=== PATIENT | male | born 1960 | race Caucasian/White ===

== ENCOUNTER 2024-12-12 08:26 | Outpatient (REF) | payer BC, SELFPAY ==
--- NOTE | ~2024-12-12 | XR_ITS ---
CLINICAL HISTORY: M25.561 - Pain in right knee Right knee three views Comparison: None provided Findings: No acute fracture or dislocation noted. No significant joint effusion identified. Mild degenerative change with joint space loss. No soft tissue foreign body. Impression: No acute bony abnormality This document has been electronically signed by: Monster Caldwell MD on 12/12/2024 19:20:51
== END 2024-12-12 08:27 | disposition home or self-care (01) ==
LOC: HO.HOSX 08:26
PROVIDERS: Visit Provider Orthopaedic Surgery
DX: M25.561 Pain in right knee (principal); S83.241A Other tear of medial meniscus, current injury, right knee, initial encounter; X50.1XXA Overexertion from prolonged static or awkward postures, initial encounter; Y93.F9 Activity, other caregiving; Y92.9 Unspecified place or not applicable; Y99.9 Unspecified external cause status
CPT/HCPCS: 73562

== ENCOUNTER 2024-12-12 10:57 | Outpatient (AMB) | payer BC, SELFPAY ==
--- NOTE | 2024-12-12 11:01 | MHC.OFFVIS ---
Vital Signs 12/12/24 11:08 Height 5 ft 6 in Weight 175 lb BMI 28.2 Intake Visit Reasons: Right knee pain and giving way Intake Note: Chirag is a 64 year old male who presents with complaints of progressively worsening right knee pain and giving way. The patient describes his pain as sharp in nature. Most of the pain is along the medial aspect of his knee. The patient states that he twisted his knee while helping his 87-year-old [id number] several months ago. He twisted his knee and had acute onset of pain. He has tried Tylenol and anti-inflammatory medicines which gave him minimal relief. He notices the pain most when he is going up and down stairs or driving his car. Allergies No Known Allergies Allergy (Verified 12/12/24 11:07) Medication List - Last Reconciled 12/12/24 by Eladio Clemente MD No Known Home Meds [facility] Surgical History (Updated 12/12/24 @ 11:14 by COLE Templeton) Hx of resection of rectum History of partial colectomy Social History (Updated 12/12/24 @ 11:08 by COLE Templeton) Patient Tobacco Use Status: Former Tobacco user Current occupational status: employed Current occupation: [employer] Physical Exam Vital Signs: BMI result Body Mass Index 28.2 Const Other: Well-nourished well-developed very friendly male awake alert and oriented x3 in no acute distress Extrem Other: Bilateral lower extremity examination shows good capillary refill, no skin lesions noted, normal sensation light touch Right knee examination shows a minimal effusion, tenderness along his medial joint line, positive René's test, no instability Results Reviewed Results Reviewed: X-rays of the patient's right knee show mild diffuse joint space narrowing, no acute bony abnormalities Assessment & Plan Assessment & Plan (1) Tear of medial meniscus of right knee: Code(s): S83.241A - Other tear of medial meniscus, current injury, right knee, initial encounter Category: Medical Plan Mr. Farah presents with right knee pain and mechanical symptoms most likely due to a medial meniscus tear. Thus, I will send the patient for an MRI of his right knee for further evaluation. I will see him back once the MRI is completed to discuss the findings and treatment options. I spent 21 minutes in reviewing the patient's records and imaging studies, seeing the patient and documenting in the medical record. Orders: Orders XR knee RT 3V Today M25.561 - Pain in right knee MR knee RT wo con Today S83.241A - Other tear of medial meniscus, current injury, right knee, initial encounter Coding Level of Care Code New Pt Level 3 (63436) Complex EM visit Add On G2211 Diagnoses Tear of medial meniscus of right knee S83.241A
[2024-12-12 11:08] VITALS: BMI 28.2
== END 2024-12-12 11:22 | disposition home or self-care (01) ==
LOC: HO.HOS 10:58
PROVIDERS: Visit Provider Orthopaedic Surgery
DX: S83.241A Other tear of medial meniscus, current injury, right knee, initial encounter (principal)
CPT/HCPCS: 99203

== ENCOUNTER → 2024-12-12 10:59 | Outpatient (BNV) | payer BC, SELFPAY | PROVIDERS: Visit Provider Radiology Diagnostic Radiology | DX: M17.11 Unilateral primary osteoarthritis, right knee (principal) | CPT/HCPCS: 73562 ==

== ENCOUNTER 2025-01-04 08:47 | Outpatient (REF) | payer BC, SELFPAY ==
--- NOTE | ~2025-01-04 | XR_ITS ---
EXAMINATION: XR SCREENING FILM FOR MR HISTORY: ORBIT, ? METAL IN EYES COMPARISON: There are no prior studies available for comparison. FINDINGS: Three views of the orbits demonstrate no radiopaque foreign body. The visualized paranasal sinuses are clear. XR/XR pre mri screening IMPRESSION: No radiopaque foreign body is identified. Electronically signed by: Anirudh Aly MD 01/04/2025 09:36 AM EDT RP
--- OUTSIDE RECORDS SUMMARY | 2025-01-04 08:54 | XMS_ITS | Encounter Summary ---
Author Organization [facility] Address [address] [place] [address] [place] [address] Phone Care Team Providers Care Architectural Superintendent Name Role Phone Kofi Heller MD Primary Care Provider + Poonam Mcclure MD Unavailable [phone] Wilian Washington MD Unavailable [phone] Encounter Details Date Type Department Care Team (Late st Contact Info) Description 02/14/2020 Procedure Pass [facility] Imaging [facility], [facility], MRI [address] [facility], [address] [place] [address] Social History Tobacco Use Types Packs/Day Years Used Date Smoking Tobacco: Former Cigarettes 1 10 Smokeless Tobacco: Never Alcohol Use Standard Drinks/Week Comments Not Asked 8 (1 standard drink = 0.6 oz pur e alcohol) Sex and Gender Information Value Date Recorded Sex Assigned at Not on file Legal Sex Male 9:28 AM EDT Gender Identity Not on file Sexual Orientation Not on file documented as of this encounter Functional Status * Patient is deaf or has serious difficulty with hearing Answer Date of Assessment Author No 03/08/2015 4:02 PM Sisi Desai MD * Patient is blind or has serious difficulty with seeing, even when wearing glasses Answer Date of Assessment Author No 03/08/2015 4:02 PM Sisi Desai MD * Patient has serious difficulty walking or climbing stairs (5yr old or older) Answer Date of Assessment Author No 03/08/2015 4:02 PM Sisi Desai MD * Patient has serious difficulty dressing or bathing (5yr old or older) Answer Date of Assessment Author No 03/08/2015 4:02 PM Sisi Desai MD * Patient has serious difficulty doing errands alone such as visiting a doctor???s office or shopping, due to physical, mental, or emotional condition (15 years old or older) Answer Date of Assessment Author No 03/08/2015 4:02 PM Sisi Desai MD documented as of this encounter Mental Status * Patient has serious difficulty concentrating, remembering, or making decisions due to physical, mental, or emotional condition Answer Entry Date Author No 03/08/2015 4:02 PM Sisi Desai MD documented in this encounter Plan of Treatment Upcoming Encounters Date Type Department Care Team (Late st Contact Info) Description 01/02/2024 Procedure Pass [facility] Imaging Department, [facility], [place] [address] [facility], [address] [place] [address] 04/22/2025 7:50 AM EST [facility], [address], [address]nd [place] [address] Leonor Jiménez MD, MPH [address] [place] [phone] [email or web address] 04/22/2025 10:00 AM EST Appointment [facility] Imaging Department, [facility], [place] [address] [facility], [address] [place] [address] Leonor Jiménez MD, MPH [address] [place] [phone] [email or web address] 05/06/2025 8:15 AM EST Office [facility], [address] [facility], 10th [place] [address] Leonor Jiménez MD, MPH [address] [place] [address] [email or web address] documented as of this encounter Visit Diagnoses Not on filedocumented in this encounter Care Teams Architectural Superintendent Relationship Specialty Start Date End Date Kofi Heller MD [address] [place] [address] [address] [place] [phone] PCP - General 02/05/15 Poonam Mcclure MD [address] [place] [address] [address] [place] [phone] Gastroenterology 02/05/15 08/24/23 Wilian Washington MD [address] [place] [phone] Gastroenterology 08/25/23 documented as of this encounter Additional Source Comments The information contained in this document represents components of the legal health record. It is not the complete legal health record.[facility]
== END 2025-01-04 08:48 | disposition home or self-care (01) ==
LOC: HO.XRAY 08:47
PROVIDERS: PCP Internal Medicine; Visit Provider Radiology Diagnostic Radiology
DX: Z13.89 Encounter for screening for other disorder (principal)

== ENCOUNTER 2025-01-09 07:48 | Outpatient (REF) | payer BC, SELFPAY ==
--- NOTE | ~2025-01-09 | MR_ITS ---
EXAMINATION: MR KNEE WITHOUT CONTRAST, RIGHT CLINICAL INFORMATION: Anterior knee pain x3 months. Other tear of medial meniscus, current injury, right knee. COMPARISON: No prior MRI. Right knee radiographs 12/12/2024. TECHNIQUE: MRI of the right knee without contrast was performed using routine sequences on a 1.5 Leyla Siemens high-field scanner. FINDINGS: MENISCI: Medial Meniscus: Intact and normal in signal. Lateral Meniscus: Intact and normal in signal. LIGAMENTS: Anterior Cruciate: Intact and normal in signal. Posterior Cruciate: Intact and normal in signal. Medial Collateral: Intact and normal in signal. Lateral Collateral Complex: The biceps femoris tendon, conjoined tendon, fibular collateral ligament, and popliteus tendon are all intact and normal in signal. EXTENSOR MECHANISM: Intact and normal in signal. The suprapatellar fat pad, prefemoral fat pad, and Hoffa's fat pad are normal in signal and appearance. PATELLAR RETINACULUM: Intact and normal in signal bilaterally. The medial patellofemoral ligament is intact. BONE: There is subchondral bone plate edema present in the patellar apex and medial patellar facet. In addition there is subchondral bone plate edema in the mid trochlea, as well as the anterior aspect of the lateral femoral condyle, nonweightbearing aspect (series 15, image 12). JOINTS/CARTILAGE: Medial Compartment: The joint space is preserved. The cartilage is normal without focal defect. Lateral Compartment: The joint space is preserved. The cartilage is normal without focal defect. Patellofemoral Compartment: There is mild to moderate osteoarthrosis present, with full-thickness cartilage fissuring involving the patellar apex and medial patellar facet (series 15, image 7). In addition there is a full-thickness cartilaginous fissure in the mid trochlea with subchondral bone plate edema (series 17, image 15). In the anterior lateral femoral condyle, far lateral trochlea are region, there is a region of full-thickness cartilaginous fissuring and robust subchondral bone plate edema (series 17, image 20; series 15, image 13). Lateral compartment cartilage is otherwise normal. JOINT FLUID AND BURSAE: There is normal joint fluid. There is no joint effusion. OTHER: The popliteal fossa is normal. There is no popliteal cyst. The imaged musculature is normal in signal. MR/MR knee RT wo con IMPRESSION: 1. 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 2. Focus of full-thickness cartilage fissuring in the anterior lateral femoral condyle, within the far lateral trochlea, with robust underlying subchondral bone plate edema. 3. The menisci are intact. The major ligamentous and tendinous structures are intact. Electronically signed by: Evert Xiong MD 01/09/2025 09:14 AM EDT
--- OUTSIDE RECORDS SUMMARY | 2025-01-09 07:50 | XMS_ITS | Encounter Summary ---
Author Organization [facility] Address [address] [place] [address] [place] [address] Phone Care Team Providers Care Manufacturing Maintenance Manager Name Role Phone Kofi Heller MD Primary Care Provider + Poonam Mcclure MD Unavailable [phone] Wilian Washington MD Unavailable Encounter Details Date Type Department Care Team (Late st Contact Info) Description 02/14/2020 Procedure Pass [facility] Imaging Department, [facility], MRI [address] [facility], [address] [place] [address] Social History Tobacco Use Types Packs/Day Years [...] st Contact Info) Description 01/02/2024 Procedure Pass [facility] Imaging Department, [facility], [place] [address] [facility], [address] [place] [address] 04/22/2025 7:50 AM EST [facility], [address], [address] [place] [address] Leonor Jiménez MD, MPH [address] [place] [phone] [email or web address] 04/22/2025 10:00 AM EST Appointment [facility] Imaging Department, [facility], [place] [address] [facility], [address] [place] [address] Leonor Jiménez MD, MPH [address] [place] [phone] [email or web address] 05/06/2025 8:15 AM EST Office Visit [facility], [address] [facility], [address] [place] [address] Leonor Jiménez MD, MPH [address] [place] [address] [email or web address] documented as of this encounter Visit Diagnoses Not on filedocumented in this encounter Care Teams Manufacturing Maintenance Manager Relationship Specialty Start Date End Date Kofi Heller MD [address] [place] [address] [address] [place] [phone] PCP - General 02/05/15 Poonam Mcclure MD [address] [place] [address] 1 [place] [phone] Gastroenterology 02/05/15 08/24/23 Wilian Washington MD [address] [place] [id number] Gastroenterology 08/25/23 documented as of this encounter Additional Source Comments The information contained in this document represents components of the legal health record. It is not the complete legal health record.[facility]
== END 2025-01-09 07:49 | disposition home or self-care (01) ==
LOC: HO.MRI 07:48
PROVIDERS: PCP Internal Medicine; Visit Provider Orthopaedic Surgery
DX: S83.241A Other tear of medial meniscus, current injury, right knee, initial encounter (principal); M25.561 Pain in right knee
CPT/HCPCS: 73721

== ENCOUNTER → 2025-01-09 07:50 | Outpatient (BNV) | payer BC, SELFPAY | PROVIDERS: PCP Internal Medicine; Visit Provider Radiology Diagnostic Radiology | DX: M22.2X1 Patellofemoral disorders, right knee (principal) | CPT/HCPCS: 73721 ==

== ENCOUNTER 2025-01-17 08:32 | Outpatient (AMB) | payer BC, SELFPAY ==
--- NOTE | 2025-01-17 08:44 | A.OFFVIS_ITS ---
Vital Signs 01/17/25 08:47 Height 5 ft 6 in Weight 175 lb BMI 28.2 BP 143/86 H Respiration 18 Pulse 65 Temp 99 F Pulse Oximetry (%) 96 Intake Visit Reasons: Right knee discomfort Intake Note: Chirag is a 64 year old male who presents today for his right knee MRI review. Patient states he is feeling well today. He continues to ride his bike for exercise. He has minimal discomfort in his right knee when he is not riding hills. Cold Patcher Required: No Allergies No Known Allergies Allergy (Verified 01/17/25 08:47) Medication List - Last Reconciled 01/17/25 by Nicky Vasquez RN No Known Home Meds PFSH Surgical History (Updated 12/12/24 @ 11:14 by COLE Templeton) Hx of resection of rectum History of partial colectomy Social History (Updated 12/12/24 @ 11:08 by COLE Templeton) Patient Tobacco Use Status: Former Tobacco user Current occupational status: employed Current occupation: [employer] Physical Exam Vital Signs: BMI result Body Mass Index 28.2 Const Other: Well-nourished well-developed very friendly male awake alert and oriented x3 in no acute distress Extrem Other: Right knee examination shows a minimal effusion, mild crepitus with range of motion, mild discomfort with range of motion, no instability Results Reviewed Results Reviewed: MRI of the patient's right knee shows mild to moderate degenerative changes most significant in the patellofemoral joint and lateral compartment, no evidence of meniscus tearing Assessment & Plan Assessment & Plan (1) Right knee pain: Code(s): M25.561 - Pain in right knee Category: Medical Plan Mr. Farah presents with intermittent right knee discomfort due to early de generative joint disease. I had a lengthy discussion with the patient regarding the treatment options. At this point the patient's symptoms are tolerable to him. We will hold off on an injection. He will continue with his activity modifications. He will follow up with me on an as-needed basis should his symptoms worsen in any way. Feel free to call me at any time should questions regarding his orthopedic management arise. I spent 22 minutes in reviewing the patient's records and imaging studies, seeing the patient and documenting in the medical record. Coding Level of Care Code Est Pt Level 3 (64615) Complex EM visit Add On G2211 Diagnoses Right knee pain M25.561
[2025-01-17 08:47] VITALS: BP 143/86; PULSE 65; RESP 18; TEMP 37.2; O2SAT 96; BMI 28.2
== END 2025-01-17 09:03 | disposition home or self-care (01) ==
LOC: HO.HOS 08:33
PROVIDERS: PCP Internal Medicine; Visit Provider Orthopaedic Surgery
DX: M25.561 Pain in right knee (principal)
CPT/HCPCS: 99213